=== PATIENT | male | born 1935 | race Caucasian/White ===

== ENCOUNTER → 2019-08-15 | Outpatient (CLI) | payer OTHER | LOC: HYPER 11:41 | DX: L89.153 Pressure ulcer of sacral region, stage 3 (principal); C90.00 Multiple myeloma not having achieved remission; R54 Age-related physical debility; M62.81 Muscle weakness (generalized); Z98.1 Arthrodesis status; Z96.652 Presence of left artificial knee joint; Z79.82 Long term (current) use of aspirin ==

== ENCOUNTER → 2019-08-29 | Outpatient (CLI) | payer OTHER | LOC: HYPER 10:09 | DX: L89.153 Pressure ulcer of sacral region, stage 3 (principal); C90.00 Multiple myeloma not having achieved remission; E07.89 Other specified disorders of thyroid; M62.81 Muscle weakness (generalized); R54 Age-related physical debility ==